=== PATIENT | male | born 1990 | race Caucasian/White ===

== ENCOUNTER 2016-07-01 20:12 | Emergency (ER) | payer OTHER ==
[~2016-07-01] VITALS: Ht 182.9 cm; Wt 79.5 kg
[2016-07-01 20:17] VITALS: BP 138/85; PULSE 79; RESP 16; O2SAT 99
--- NOTE | 2016-07-01 21:02 | ED.REPORT ---
HPI-Head Prob / Injury Date of Service Jul 01, 2016 ED Provider: Dr. Wilmar Nunez M.D. A 25 year old male with a history of nonerosive gastritis and gastric ulcer presents to the ED with neck pain onset a couple of days ago. The pain is described as "pressure," exacerbated with lateral flexion of the neck and accompanied by a "crunching noise" at onset. The patient also reports occipital head pain. He denies other symptoms. The patient has had similar symptoms once in the past, which resolved without treatment. Nursing Notes Stated Complaint: HEAD AND NECK PAIN Chief Complaint: Head, Face, Neck Trauma Nursing Notes Reviewed: Yes Allergies: Coded Allergies: Sulfa (Sulfonamide Antibiotics) (Verified Allergy, Unknown, 07/01/16) No Active Prescriptions or Reported Meds General Time Seen by Provider: 21:01 Chief Complaint Other (Neck pain) Hx Obtained From: Patient Arrived By: Walk-in Onset Occurred: 3 days ago ("a couple") Symptom Duration: Since onset Location: : Neck: Occipital region L: Occipital region R Quality: Painful, Pressure Severity: Current: Moderate Severity: Maximum: Moderate Associated with: Reports: Headache Pertinent Negative: Relieved by nothing Immunizations: Unknown Recent Healthcare: No recent doctor visit Similar Sx Previous: Yes Past Medical History Past Medical History Mild nonerosive gastritis Gastric ulcer Past Surgical History None reported Smoking History Current Some Day Smoker Social History Alcohol Use: Denies alcohol use Drug Use: THC Ambulatory Status Independent Review of Systems Constitutional: Denies: Fever GI: Denies: Diarrhea, Vomiting Musculoskeletal: Reports: Neck pain Neurologic: Reports: Headache Complete sys rev & neg: except as marked. Respiratory: Denies: Non-productive cough, Shortness of breath Physical Exam Initial Vital Signs Vital Signs (First) Date Time Temp Pulse Resp B/P Pulse Ox O2 Delivery O2 Flow Rate FiO2 07/01/16 20:17 36.1 79 16 138/85 99 Room Air Initial VS: Reviewed Respiratory: No respiratory distress Extremities: Vascular intact, Neuro intact Skin: Warm, Dry, No cyanosis Psychiatric: Mood/affect normal, Behavior normal, Normal thought content General/Constitutional: Awake, Alert, No acute distress Head / Eyes: Atraumatic, Normocephalic Neck: Supple, Full range of motion, No swelling, Non-tender, No crepitus Muscles normal Neurologic: Oriented X3, Speech NL, No motor deficits, No sensory deficits Interpretation & Diagnostics X-Ray C-Spine Interpretation IMPRESSION: No fracture, dislocation or abnormal vertebral body translation in the flexed or extended positions. Dictated by: Marta Farmer MD, PhD on 07/01/2016 at 21:58 Study: 5 view Interpretation / Wet Read by: Interpret - Radiologist Re-Eval/Medical Decision Med Decision/Clinical Course 25-year-old with crepitus in his neck and no findings on exam or x-ray. His recent gastric problems render him unsuitable for ongoing nonsteroidal therapy. Limited at this point to extract Tylenol. Follow-up with PCP and may consider manipulative therapy. Soft collar recommended for sleep. He is dubious. Discharged in stable condition. Source of Hx: Old records Re-Evaluation/Progress : Time of Eval: 21:45 Patient Status: Condition improved Re-Evaluation/Progress Note: Discussed with patient x-ray results, diagnosis, and plan for discharge. Follow-up and return to the ER instructions given. Patient agrees with plan for care and all questions were addressed. Counseled Regarding: Diagnosis, Need for follow-up, When/why to return to ED Discharge & Departure Shift Change Sign-Out Response to Therapy: Improved Primary Impression: Crepitus of cervical spine Disposition: Home All VS Reviewed: Yes Condition: Improved Patient Instructions: Spasmodic Torticollis (ED) Additional Instructions: You may wish to wear a soft collar at night to protect your neck and prevent prolonged periods of time and an abnormal posture. Extra strength Tylenol, or if you can tolerate it with your stomach issues, Ibuprofen as needed for discomfort. Follow-up with your doctor in the office. He can talk with you also about manipulative therapy. Return if any numbness, tingling, weakness, or other new symptoms of concern develop. Referrals: Ras Umana DO (PCP) Marcelino Attestation Portions of this note were transcribed by Eda Bird. I, Dr. Nunez, personally performed the history, physical exam, and medical decision-making; I reviewed and confirmed the accuracy of the information in the transcribed note. Signed by: Marcelino Baum, 07/02/2016, 00:05 copies to: Ras Umana Christopher W MD Jul 01, 2016 21:02 EDA BIRD Jul 01, 2016 21:03
--- NOTE | 2016-07-01 22:01 | DRSVH ---
PROCEDURE: X-RAY CERVICAL SPINE WITH FLEXION AND EXTENSION, 4 VIEW INDICATIONS: crepitus and pain TECHNIQUE: 5 views of the cervical spine were acquired. COMPARISON: None. FINDINGS: Bones: No fractures or dislocations to the T1 level. No suspicious bony lesions. There is normal r stephenie of motion between flexion and extension, with preserved normal bony alignment. Soft tissues: Prevertebral soft tissues are normal in thickness. IMPRESSION: No fracture, dislocation or abnormal vertebral body translation in the flexed or extende d positions. Dictated by: Marta Farmer MD, PhD on 07/01/2016 at 21:58 Approved by: Marta Farmer MD, PhD on 07/01/2016 at 22:00
== END 2016-07-01 22:06 | disposition home or self-care (01) ==
LOC: SED 20:12
DX: M54.2 Cervicalgia (principal); R51 Headache; F17.200 Nicotine dependence, unspecified, uncomplicated; Z88.2 Allergy status to sulfonamides